=== PATIENT | female | born 2000 | race Caucasian/White ===

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

== ENCOUNTER 2021-11-12 16:19 | Outpatient (CLI) | payer OTHER, SELFPAY ==
[2021-11-16 03:07] LABS: Chlamydia By Nucleic Acid AMP Negative (Negative)
[2021-11-17 13:53] LABS: Gonococcus By Nucleic Acid AMP Negative (Negative)
[2021-11-18 18:38] LABS: HPV Reflexed? NOT INDICATED
== END 2021-11-12 23:59 | disposition home or self-care (01) ==
LOC: LABSPEC 16:21
PROVIDERS: PCP Pediatrics; Visit Provider Obstetrics & Gynecology
DX: Z11.3 Encounter for screening for infections with a predominantly sexual mode of transmission (principal); Z12.4 Encounter for screening for malignant neoplasm of cervix
CPT/HCPCS: 87491; 87591; 88175; G0145